=== PATIENT | female | born 1970 | race Caucasian/White ===

== ENCOUNTER 2016-12-30 15:36 | Emergency (ER) | payer OTHER ==
--- NOTE | 2016-12-30 16:20 | ED Physician Chart ---
Chief Complaint/HPI - Patient Information Date Seen:: 12/30/16 Time Seen:: 16:10 Chief Complaint:: low back pain History of Present Illness:: Patient has had low back pain for last 2 days. She didn't denies dysuria but she is having urinary frequency with small amounts of urine each time. No fever. Allergies:: Allergies Allergy/AdvReac Type Severity Reaction Status Date / Time No Known Allergies Allergy Verified 12/30/16 15:44 Vitals:: Vital Signs - 8 hr 12/30/16 15:36 Temp 98.3 F HR 84 RR 16 BP 123/71 O2 Sat % 97 Historian:: Patient Review:: Nurse's Note Reviewed Review of Systems - Review of Systems General/Constitutional: No fever, No chills Skin: No skin lesions Head: No headache Eyes: No loss of vision ENT: No earache Neck: No neck pain Cardio Vascular: No chest pain, No palpitations Pulmonary: No SOB GI: No nausea, No vomiting, No pain G/U: Frequency, No hematuria Musculoskeletal: No bone or joint pain Endocrine: No polyuria Psychiatric: No prior psych history Past Medical History - Past Medical History Past Medical History: No significant medical hx Family History: Heart disease, Diabetes Melitus, HTN Social History: Smoker, No Alcohol, Other (smokes 1 pack cigarettes per day) Surgical History: other (tubal ligation) Psychiatricy History: None Medication: None Family Medical History - Family Member Mother History Unknown: Yes Physical Exam - Physical Examination General/Constitutional: Well-developed, well-nourished, Alert, No distress Head: Atraumatic Eyes: Lids, conjuctiva normal Skin: Nl inspection, No rash ENMT: External ears, nose nl, TM canals nl, Nasal exam nl Other ENMT comments:: Edentulous with upper dentures Neck: No nuchal rigidity Respiratory: Nl effort/Exclusion, Clear to Auscultation, No Wheeze/Rhonchi/Rales Cardio Vascular: RRR, No murmur, gallop, rubs GI: No tenderness/rebounding/guarding, No organomegaly, No hernia : No CVA tenderness Extremities: Normal digits & nails Neuro/Psych: No focal deficits Labs/Radiology/EKG Results - Lab Results Results: Laboratory Results - last 24 hr 12/30/16 15:41 Urine Source CLEAN C Urine Color YELLOW Urine Clarity SLIGHT HAZY Urine pH 6.0 Ur Specific Superior 1.030 Urine Protein TRACE Urine Glucose (UA) NEGATIVE Urine Ketones NEGATIVE Urine Blood NEGATIVE Urine Nitrate NEGATIVE Urine Bilirubin NEGATIVE Urine Urobilinogen 0.2 Ur Leukocyte Esterase NEGATIVE Urine RBC NONE SEEN Urine WBC 2-5 Ur Epithelial Cells MODERATE Urine Bacteria FEW Urine Mucus FEW ED Septic Shock - . Is Septic Shock (SBP<90, OR Lactate>4 mmol\L) present?: No - <6hrs of presentation: Vital Signs: Vital Signs - 8 hr 12/30/16 15:36 Temp 98.3 F HR 84 RR 16 BP 123/71 O2 Sat % 97 Reassessment (Disposition) - Reassessment Reassessment Condition:: Unchanged - Diagnosis Diagnosis:: Urethral syndrome - Aftercare/Follow up Instructions Aftercare/Follow-Up Instructions:: Counseled pt regarding lab results/diagnosis & need follow up Medication Prescribed:: Bactrim DS No. 14 one twice a day - Patient Disposition Discharge/Transfer:: Home Condition at Disposition:: Stable, Unchanged
[2016-12-30 16:42] LABS: URINE BILIRUBIN NEGATIVE (NEGATIVE); URINE BLOOD NEGATIVE (NEGATIVE); URINE COLOR YELLOW; URINE GLUCOSE (UA) NEGATIVE (NEGATIVE); URINE KETONE NEGATIVE (NEGATIVE); URINE PROTEIN TRACE mg/dL (NEGATIVE); URINE UROBILINOGEN 0.2 E.U./dL (0.2 - 1.0)
[2016-12-30 16:43] LABS: URINE BACTERIA FEW /hpf (NONE SEEN); URINE EPITHELIAL CELLS MODERATE /lpf (FEW); URINE RBC NONE SEEN /hpf (0-5)
== END 2016-12-30 17:10 | disposition home or self-care (01) ==
LOC: ER 15:36
DX: N34.3 Urethral syndrome, unspecified (principal); F17.210 Nicotine dependence, cigarettes, uncomplicated
CPT/HCPCS: 81001-TC; Z7502